=== PATIENT | male | born 1970 | race Caucasian/White ===

== ENCOUNTER 2024-08-21 19:19 | Emergency (ER) | payer SELFPAY ==
--- NOTE | 2024-08-21 20:33 | RAD REPORT ---
Exam:Hand Right 3 View HISTORY: Right hand pain FINDINGS: Amputation terminal tuft second digit. In addition there is an 8 mm fracture fragment along the marino r aspect of the second distal phalanx. No dislocation
[2024-08-21] MEDS ORDERED: TDAP (DIPHTH,PERTUSS(ACELL),TET VAC) 0.5 ML VIAL IMVAC ONE (20:36)
[2024-08-21] MEDS ORDERED: LIDOCAINE 1% 20 ML MDV ONE (20:36)
[2024-08-21] MEDS ORDERED: LIDOCAINE 1% MPF 5 ML VIAL ONE (20:48)
--- NOTE | 2024-08-21 22:08 | ER ---
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 br2 Coronavirus screen: Client denies travel out of the [place] in the last 14 days. Ebola Screen: Patient denies travel to an Ebola-affected area in the 21 days before illness onset. Initial Sepsis Screen: Does the patient meet any 2 criteria? No. Patient's initial sepsis screen is negative. Does the patient have a suspected source of infection? No. Patient's initial sepsis screen is negative. Risk Assessment: Do you want to hurt yourself or someone else? Patient reports no desire to harm self or others. Onset of symptoms was August 21, 2024 at 18:30. 19:30 Method Of Arrival: Ambulatory br2 19:30 Acuity: DI 3 br2 Triage Assessment: 21:00 Injury Description: Laceration sustained to right hand and right index fingernail is ha1 0.5 to 2.5 cm long, bleeding moderately. Historical: - Allergies: 22:30 No Known Allergies; ha1 - Immunization history:: Adult Immunizations up to date. - Infectious Disease History:: Denies. - Family history:: not pertinent. - Social history:: Smoking status: unknown. Screenin:30 [facility] ED Fall Risk Assessment (Adult) History of falling in the last 3 months, jj7 including since admission No falls in past 3 months (0 pts) Confusion or Disorientation No (0 pts) Intoxicated or Sedated No (0 pts) Impaired Gait No (0 pts) Mobility Assist Device Used No (0 pt) Altered Elimination No (0 pt) Score/Fall Risk Level 0 - 2 = Low Risk Oriented to surroundings, Maintained a safe environment, Educated pt \T\ family on fall prevention, incl call for assistance when getting out of bed, Assessed \T\ reinforced patient's understanding of fall precautions. Abuse screen: Denies threats or abuse. Nutritional screening: No deficits noted. Tuberculosis screening: No symptoms or risk factors identified. Assessment: 19:30 General: Appears in no apparent distress. comfortable, Behavior is calm, cooperative, jj7 appropriate for age. Pain: Complains of pain in right index fingernail. Derm: Skin OPEN WOUND TO INDEX FINGER. Musculoskeletal: Reports pain in right index fingernail. 22:29 Reassessment: Patient and/or family updated on plan of care and expected duration. Pain ha1 level reassessed. Patient is alert, oriented x 3, equal unlabored respirations, skin warm/dry/pink. wound care clean and dry. Patient states feeling better. Patient states symptoms have improved. Vital Signs: 19:30 BP 139 / 102; Pulse 87; Resp 18; Temp 97.9; Pulse Ox 95% on R/A; Weight 96.16 kg; br2 Height 5 ft. 9 in. ; Pain 10/10; 20:59 BP 132 / 99; Pulse 71; Resp 17; Pulse Ox 98% ; jj7 22:31 BP 128 / 85; Pulse 68; Resp 17 S; Pulse Ox 98% on R/A; ha1 19:30 Body Mass Index 31.31 (96.16 kg, 175.26 cm) br2 19:30 Pain Scale: Adult br2 ED Course: 19:21 Patient arrived in ED. jj6 19:30 Lenora Barreto, RN is Primary Nurse. br2 19:30 Patient has correct armband on for positive identification. Bed in low position. Call jj7 light in reach. Adult w/ patient. Provided Education on: USE OF CALL VICTOR. 19:32 Triage completed. br2 19:55 Que Soto MD is Attending Physician. rt 20:21 Hand Right 3 View XRAY In Process Unspecified. EDMS 20:59 Assist provider with laceration repair Set up tray. Wound care: to laceration was jj7 soaked in normal saline solution, Patient tolerated well. 21:47 Assist provider with laceration repair on right hand Performed by Que ren7 PERFORMING A NERVE BLOCK. 22:07 Elder Chacon MD is Referral Physician. rt 22:30 Patient did not have IV access during this emergency room visit. ha1 22:31 Arm band placed on right wrist. ha1 Administered Medications: 20:59 Drug: Boostrix Tdap IM 0.5 ml IM once; as a single dose Route: IM; Site: left deltoid; jj7 21:30 Follow up: Response: No adverse reaction ha1 22:17 Follow up: Response: No adverse reaction jj7 21:45 Drug: Lidocaine Infiltration (1 %) 5 ml 5 ml Infiltration once; to bedside {Note: ADMIN jj7 BY DR SOTO.} Volume: 5 ml; Route: Infiltration; 22:30 Follow up: Response: No adverse reaction ha1 22:19 Drug: Cephalexin PO 500 mg PO once Route: PO; jj7 22:30 Follow up: Response: No adverse reaction ha1 Medication: 19:30 VIS not applicable for this client. jj7 Outcome: 22:07 Discharge ordered by . rt 22:30 Discharged to home ambulatory, ha1 22:30 Condition: stable 22:30 Discharge instructions given to patient, Instructed on discharge instructions, follow up and referral plans. medication usage, Demonstrated understanding of instructions, follow-up care, medications, Prescriptions given X 1, 22:32 Patient left the ED. ha1 Signatures: Dispatcher [employer] EDMS Kimberly Grant jj6 Cherri Hendrickson RN RN ha1 Raad Johns RN RN jj7 Que Soto MD MD rt Lenora Barreto RN RN br2 Corrections: (The following items were deleted from the chart) 22:31 22:30 Allergies: Aspirin; ha1 ha1
--- NOTE | 2024-08-21 22:08 | EDPHYS ---
Physician Documentation [facility] Name: Lucio Lino Age: 54 yrs Sex: Male : 1970 Arrival Date: 08/21/2024 Time: 19:19 Bed 2 Private MD: ED Physician Que Soto HPI: 08/21 22:18 This 54 yrs old Male presents to ER via Ambulatory with complaints of Finger Injury. rt 22:18 Patient presents to the ED with injury to the right index finger. 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 Denies other injury, acute complaints, symptoms are moderate in severity, no other aggravating or alleviating factors.. Historical: - Allergies: 22:30 No Known Allergies; ha1 - Immunization history:: Adult Immunizations up to date. - Infectious Disease History:: Denies. - Family history:: not pertinent. - Social history:: Smoking status: unknown. ROS: 22:18 Constitutional: Negative for fever, chills, and weight loss, Cardiovascular: Negative rt for chest pain, palpitations, and edema, Respiratory: Negative for shortness of breath, cough, wheezing, and pleuritic chest pain, Abdomen/GI: Negative for abdominal pain, nausea, vomiting, diarrhea, and constipation, 22:18 MS/extremity: Positive for laceration, pain, Exam: 22:18 Constitutional: This is a well developed, well nourished patient who is awake, alert, rt and in no acute distress. Head/Face: Normocephalic, atraumatic. Neuro: Awake and alert, GCS 15, oriented to person, place, time, and situation. Cranial nerves II-XII grossly intact. Motor strength 5/5 in all extremities. Sensory grossly intact. Cerebellar exam normal. Normal gait. 22:18 Musculoskeletal/extremity: On the right index finger, there is a laceration about the distal third of the fingernail extending to a flap to the fingertip, no active bleeding. Vital Signs: 19:30 BP 139 / 102; Pulse 87; Resp 18; Temp 97.9; Pulse Ox 95% on R/A; Weight 96.16 kg; br2 Height 5 ft. 9 in. ; Pain 10/10; 20:59 BP 132 / 99; Pulse 71; Resp 17; Pulse Ox 98% ; jj7 22:31 BP 128 / 85; Pulse 68; Resp 17 S; Pulse Ox 98% on R/A; ha1 19:30 Body Mass Index 31.31 (96.16 kg, 175.26 cm) br2 19:30 Pain Scale: Adult br2 Laceration: 22:18 Wound Repair of 1cm ( 0.4in ) subcutaneous laceration to right index fingernail. rt Fingertip avulsion. Distal neuro/vascular/tendon intact. Anesthesia: Digital block administered with 2 mls of 1% lidocaine. Wound prep: Copious irrigation. Skin closed with 2 4-0 Vicryl using simple sutures and sterile technique. Dressed with 4x4's. Patient tolerated well. MDM: 19:57 Medical Screening Exam initiated rt 22:18 Differential diagnosis: Tuft fracture, laceration, avulsion. Data reviewed: vital rt signs, nurses notes, radiologic studies. Independent interpretation of the following test(s) in the Emergency Department X-Ray: My interpretation is Fracture with partial tuft amputation seen on my interpretation of x-ray images. Counseling: I had a detailed discussion with the patient and/or guardian regarding the historical points, exam findings, and any diagnostic results supporting the discharge/admit diagnosis, radiology results, the need for outpatient follow up. ED course: Tuft fracture noted, skin is reasonably intact, able to tack skin of the. Wound was copiously irrigated. Patient preventative antibiotics, return precautions for signs of infection discussed.. 02/07 20:03 Order name: Hand Right 3 View XRAY; Complete Time: 20:34 rt 0207 20:03 Order name: Wound Care; Complete Time: 20:59 rt 0207 22:06 Order name: Dressing - Wound; Complete Time: 22:17 rt 02/07 22:06 Order name: Finger Splint; Complete Time: 22:17 rt Administered Medications: 20:59 Drug: Boostrix Tdap IM 0.5 ml IM once; as a single dose Route: IM; Site: left deltoid; jj7 21:30 Follow up: Response: No adverse reaction ha1 22:17 Follow up: Response: No adverse reaction jj7 21:45 Drug: Lidocaine Infiltration (1 %) 5 ml 5 ml Infiltration once; to bedside {Note: ADMIN jj7 BY DR SOTO.} Volume: 5 ml; Route: Infiltration; 22:30 Follow up: Response: No adverse reaction ha1 22:19 Drug: Cephalexin PO 500 mg PO once Route: PO; jj7 22:30 Follow up: Response: No adverse reaction ha1 Disposition Summary: 08/21/24 22:07 Discharge Ordered Notes: Location: Home rt Problem: new rt Symptoms: have improved rt Condition: Stable rt Diagnosis - Tuft fracture of right index finger rt - Laceration of right index finger rt Followup: rt - With: Elder Chacon MD - When: 7 - 10 days - Reason: Discharge Instructions: - Discharge Summary Sheet rt - Finger Fracture, Adult rt - Laceration Care, Adult rt Forms: - Medication Reconciliation Form rt - Antibiotic Education rt - Prescription Opioid Use rt - Patient Portal Instructions rt - Leadership Thank You Letter rt Prescriptions: - Cephalexin 500 mg Oral Capsule - take 1 capsule ORAL route every 8 hours for 10 days; 30 capsule; Refills: 0, rt Product Selection Permitted Signatures: Dispatcher [employer] Cherri Jackson RN RN ha1 Raad Johns RN RN jj7 Que Soto MD MD rt Corrections: (The following items were deleted from the chart) 20:03 20:03 Hand Right 3 View+[email or web address] ordered. EDME EDMS 22:31 22:30 Allergies: Aspirin; ha1 ha1
[2024-08-21] MEDS ORDERED: CEPHALEXIN 250 MG CAP ONE (22:18)
[2024-08-21 22:40] VITALS: TEMP 97.9
[2024-08-21 22:41] VITALS: O2SAT 98
[2024-08-21 22:42] VITALS: BP 128/85
== END 2024-08-21 22:32 | disposition home or self-care (01) ==
LOC: ER 19:19
PROC: 2W3JX1Z Immobilization of Right Finger using Splint (ICD-10-PCS; principal; 2024-08-21)
DX: S61.210A Laceration without foreign body of right index finger without damage to nail, initial encounter (principal); S62.630A Displaced fracture of distal phalanx of right index finger, initial encounter for closed fracture
CPT/HCPCS: 12001; 96372; 99284; J2003